=== PATIENT | female | born 2000 | race Two or more races ===

== ENCOUNTER 2021-05-23 19:36 | Emergency (ER) | payer SELFPAY ==
[~2021-05-23] VITALS: Ht 157.5 cm; Wt 65.8 kg
--- NOTE | 2021-05-23 20:30 | NUR ---
Patient placed back to waiting room due to no beds available in the ER.
--- NOTE | 2021-05-23 22:12 | NUR ---
Patient placed in room 4b. Dr Spring into eval patient.
[2021-05-23] MEDS ORDERED: PRED20TA PO (22:21)
[2021-05-23] MEDS ORDERED: predniSONE 50 MG TABLET PO ONE (22:30)
[2021-05-23] MEDS ORDERED: FLUCONAZOLE 100 MG TABLET PO ONE (22:30)
[2021-05-23] MEDS ORDERED: FLUCONAZOLE 100 MG TABLET ONE (22:34)
[2021-05-23] MEDS ORDERED: predniSONE 50 MG TABLET ONE (22:34)
--- NOTE | 2021-05-23 22:35 | NUR ---
Patient discharged to home in stable condition. Written and verbal after care instructions given. Patient verbalizes understanding of instructions. Stressed follow up or return to ER for worsening s/s. Steady gait, no SOB or labored breathing.
[2021-05-23 22:43] VITALS: BP 133/80
== END 2021-05-23 22:30 | disposition home or self-care (01) ==
LOC: ER 19:38
DX: R21 Rash and other nonspecific skin eruption (principal); R03.0 Elevated blood-pressure reading, without diagnosis of hypertension
CPT/HCPCS: 99283; J7512; A4663